=== PATIENT | male | born 1995 | race African-American/Black ===

== ENCOUNTER 2018-07-26 22:27 | Emergency (ER) | payer BC ==
[2018-07-26 22:32] VITALS: BP 128/84
[2018-07-26] MEDS ORDERED: TDAP ADULT 0.5 ML INJ (BOOSTRIX) IM ONE (22:32)
--- NOTE | 2018-07-26 22:32 | EDPHY ---
H & P Time Seen by Provider: 07/26/18 22:30 HPI/ROS: CHIEF COMPLAINT: Medical screening for incarceration, laceration left hand HISTORY OF PRESENT ILLNESS: 22-year-old [id number] male with out-of- date tetanus arrives in custody of police for medical screening prior to incarceration after he sustain laceration from broken glass to his left hand. Denies paresthesia or sensory or motor deficit. Possible foreign body sensation. PHYSICAL EXAM (Prior to examination, patient consented to physical exam, hands were washed and my usual and customary physical exam procedures followed) 1) GENERAL: Well-developed, well-nourished, alert and oriented. Appears to be in no acute distress. 2) HEAD: Normocephalic 3) HEENT: Pupils equal, round, reactive to light bilaterally. 4) LUNGS: Breathing comfortably. 5) MUSCULOSKELETAL: Soft compartments. Normal coloration. 6) SKIN: Superficial abrasions to left hand palmar aspect 7) VASCULAR: pulses and cap refill present are brisk 8) NEUROLOGIC: Radial, ulnar, median nerve function intact with no deficits appreciated on exam DIFFERENTIAL DIAGNOSIS: in no particular order including but not limited to fracture, sprain, compartment syndrome (Shruthi Puckett) Constitutional: Initial Vital Signs Temperature (C) 36.6 C 07/26/18 22:31 Heart Rate 111 H 07/26/18 22:31 Respiratory Rate 16 07/26/18 22:31 Blood Pressure 128/84 H 07/26/18 22:31 O2 Sat (%) 96 07/26/18 22:31 O2 Delivery Mode Room Air Allergies/Adverse Reactions: No Known Allergies Allergy (Unverified 01/08/14 16:37) Home Medications: Medication Instructions Recorded NO HOME MEDS 01/08/14 oxyCODONE/APAP 5325 [Percocet 1 tab PO Q6 #10 tab 01/08/14 5/325] MDM/Departure - MDM Imaging Results: Imaging Impressions Hand X-Ray 07/26/18 22:31 Impression: Negative left hand radiographs. Images reviewed myself (Shruthi Puckett Ale) Medications Given: Discontinued Medications Diphtheria/Tetanus/Acell Pertussis (Boostrix) 0.5 ml IM .ONCE ONE Stop: 07/26/18 22:33 Last Admin: 07/26/18 22:44 Dose: 0.5 ml ED Course/Re-evaluation: Multiple superficial abrasions with no laceration. Wound be allowed to heal via secondary intention. No signs of infection. Neurovascular intact. I saw this patient independently based on established practice protocols. Care of patient under supervision of secondary supervising physician Dr Knapp . ( Italo,Shruthi Ale) PHYSICIAN DOCUMENTATION: The patient was evaluated and managed by the Physician Lamination Inspector. My co- signature indicates that I have reviewed this chart and I agree with the findings and plan of care as documented. I am the secondary supervising physician. (Xochilt Knapp) - Depart Disposition: Law Enforcement/Court/Long Term Clinical Impression: Abrasion of left hand Condition: Good Instructions: Abrasion (ED) Additional Instructions: Return to the ER if you develop redness, swelling, discharge, warmth to the wound, red streaks going up your arm, or any other symptoms that concern you. You are medically cleared for incarceration Referrals: Follow-up, with halfway nurse in 2 days [Other] - As per Instructions
== END 2018-07-26 23:07 ==
DX: S60.512A Abrasion of left hand, initial encounter (principal); Z23 Encounter for immunization; W25.XXXA Contact with sharp glass, initial encounter